=== PATIENT | male | born 2000 ===

== ENCOUNTER 2022-12-14 19:36 | Emergency (ER) | payer MEDICAID ==
[2022-12-14] MEDS ORDERED: Ondansetron 4 MG/2 ML SDV IVPUSH ONE (20:02)
[2022-12-14] MEDS ORDERED: Ketorolac 30 MG/ML SDV IVPUSH ONE (20:02)
[2022-12-14] MEDS ORDERED: Acetaminophen 325 MG Tab PO ONE (20:02)
[2022-12-14] MEDS ORDERED: Lactated Ringers 1,000 ML IV SCH (20:15)
[2022-12-14 20:32] LABS: BASOPHILS ABSOLUTE AUTO 0.1 K/uL (0.0-0.1); BASOPHILS PERCENT AUTO 0.9 % (0.0-1.5); EOSINOPHILS ABSOLUTE AUTO 0.1 K/uL (0.0-0.7); EOSINOPHILS PERCENT AUTO 0.7 % (0.0-7.0); HEMATOCRIT 43.8 % (38.0-50.0); LYMPHOCYTES ABSOLUTE AUTO 1.6 K/uL (0.6-2.4); MEAN CORPUSCULAR HEMOGLOBIN 30.2 pg (27.0-32.0); MEAN CORPUSCULAR HGB CONC 34.2 g/dL (31.0-37.0); MEAN CORPUSCULAR VOLUME 88.3 fL (80.0-98.0); MONOCYTES PERCENT AUTO 10.4 % (0.0-15.0); NEUTROPHILS ABSOLUTE AUTO 7.1 K/uL (1.4-5.7); NRBC ABSOLUTE 0 K/uL; PLATELET COUNT,PLT 248 K/uL (150-400); RED BLOOD CELL COUNT 4.96 M/uL (4.50-5.90)
[2022-12-14 20:49] LABS: INR 1.14 (0.86-1.11)
[2022-12-14 20:58] LABS: ALBUMIN 3.7 g/dL (3.4-5.0); BILIRUBIN TOTAL 0.4 mg/dL (0.2-1.0); CALCIUM 8.4 mg/dL (8.5-10.1); CARBON DIOXIDE,CO2 26.5 mmol/L (21.0-32.0); CREATININE 1.2 mg/dL (0.8-1.3); EST CRCL DRUG DOSING (CG) 107.78 mL/min; POTASSIUM,K 3.9 mmol/L (3.5-5.1); PROTEIN TOTAL,TP 7.3 g/dL (6.4-8.2)
[2022-12-14 21:01] LABS: LACTIC ACID 2.1 mmol/L (0.4-2.0)
[2022-12-14 21:13] LABS: CORONAVIRUS COVID-19 NAA NEGATIVE (NEGATIVE); INFLUENZA A NAA NEGATIVE (NEGATIVE); INFLUENZA B NAA NEGATIVE (NEGATIVE); RESPIRATORY SYNCYTIAL VIR NAA NEGATIVE (NEGATIVE)
[2022-12-14] MEDS ORDERED: cefTRIAXone 1 GM in Sodium Chloride 0.9% 50 ML IV ONE (21:14)
[2022-12-14] MEDS ORDERED: Sodium Chloride 0.9% 1,000 ML IV ONE (21:14)
[2022-12-14] MEDS ORDERED: Metoclopramide 10 MG/2 ML SDV IVPUSH ONE (21:29)
[2022-12-14 23:14] LABS: APPEARANCE,URINE CLEAR; BILIRUBIN,URINE NEGATIVE (NEGATIVE); COLOR,URINE YELLOW; GLUCOSE,URINE NEGATIVE (NEGATIVE); KETONES,URINE NEGATIVE (NEGATIVE); LEUKOCYTE ESTERASE,URINE NEGATIVE (NEGATIVE); NITRITE,URINE NEGATIVE (NEGATIVE); OCCULT BLOOD,URINE TRACE-INTACT (NEGATIVE); PROTEIN,URINE NEGATIVE (NEGATIVE); UROBILINOGEN,URINE 0.2 EU/dL (<2.0)
[2022-12-14 23:28] LABS: RBC,URINE 0-2 (0-2/HPF); WBC,URINE NONE SEEN (0-5/HPF)
[2022-12-14 23:29] LABS: BACTERIA,URINE RARE (NEGATIVE); EPITHELIAL CELLS,URINE RARE (NONE-FEW)
[2022-12-14 23:58] LABS: LACTIC ACID 1.4 mmol/L (0.4-2.0)
== END 2022-12-15 00:24 | disposition home or self-care (01) ==
LOC: MW.ED 19:36
DX: R50.9 Fever, unspecified (principal); F17.210 Nicotine dependence, cigarettes, uncomplicated; Z20.822 Contact with and (suspected) exposure to COVID-19
CPT/HCPCS: 0241U; 36415; 71045; 80053; 81001; 83605; 83690; 85025; 85610; 86308; 87040; 87651; 96361; 96365; 96375; 99284; A9270; J0696; J1885; J2405; J2765; J3490; J7030; J7120

== ENCOUNTER 2023-01-07 13:44 | Emergency (ER) | payer MEDICAID | END 2023-01-07 15:14 | disposition home or self-care (01) | LOC: MW.ED 13:44 | DX: L73.2 Hidradenitis suppurativa (principal); F17.210 Nicotine dependence, cigarettes, uncomplicated | CPT/HCPCS: 99283 ==

== ENCOUNTER 2023-05-10 13:51 | Emergency (ER) | payer SELFPAY | END 2023-05-10 16:05 | disposition home or self-care (01) | LOC: MW.ED 13:51 | DX: H60.92 Unspecified otitis externa, left ear (principal) | CPT/HCPCS: 99282; 99283 ==